=== PATIENT | male | born 1955 | race Caucasian/White ===

== ENCOUNTER 2020-12-09 02:48 | Inpatient (IN) | payer MEDICARE ==
[~2020-12-09] VITALS: Ht 172.7 cm; Wt 90.9 kg
--- NOTE | 2020-12-09 03:04 | NUR ---
PT WAS CHECKING INTO LOBBY FOR LEFT FOOT PAIN. WHILE IN W/C, REPORTS PATIENT STATED HE DOES NOT FEEL WELL AND THEN BECAME UNRESPONSIVE. ER STAFF WAS CALLED TO LOBBY AND FOUND PATIENT WITH CHIN TO CHEST, DIAPHORETIC, AND THREADY PULSE. AIRWAY OPENED AND WHEELED BACK TO ROOM 5. NOW A&OX4. NO SYMPTOMS OTHER THAN LEFT FOOT PAIN STILL
[2020-12-09 03:11] LABS: BASOPHILS # (AUTO) 0.1 X10'3 (0-0.2); BASOPHILS % (AUTO) 0.8 % (0-1); EOSINOPHILS # (AUTO) 0.2 X10'3 (0-0.9); EOSINOPHILS % (AUTO) 1.4 % (0-6); HEMATOCRIT 37.3 % (42.0-52.0); LYMPHOCYTES # (AUTO) 4.1 X10'3 (1.1-4.8); LYMPHOCYTES % (AUTO) 33.6 % (21-51); MEAN CORPUSCULAR HEMOGLOBIN 30.7 PG (27.0-31.0); MEAN CORPUSCULAR HGB CONC 34.8 g/dL (33.0-36.5); MEAN CORPUSCULAR VOLUME 88.3 FL (78-98); MEAN PLATELET VOLUME 8.5 FL (7.4-10.4); MONOCYTES # (AUTO) 0.8 X10'3 (0-0.9); MONOCYTES % (AUTO) 6.2 % (2-12); NEUTROPHILS # (AUTO) 7.1 X10'3 (1.8-7.7); PLATELET COUNT 179 X10'3 (140-440); RED BLOOD COUNT 4.23 X10'6 (4.70-6.10); RED CELL DISTRIBUTION WIDTH 12.8 % (11.5-14.5); WHITE BLOOD COUNT 12.2 X10'3 (4.5-11.0)
[2020-12-09] MEDS ORDERED: ketorolac trometh. 30mg/ml inj. IV ONE (03:15)
[2020-12-09] MEDS ORDERED: normal saline 1000ml 1,000 ML IV ONE (03:15)
[2020-12-09 03:19] LABS: D-DIMER 0.31 MG/L FEU (0-0.50)
[2020-12-09 03:25] LABS: ALANINE AMINOTRANSFERASE 35 U/L (12-78); ALBUMIN 3.6 G/DL (3.4-5.0); ALBUMIN/GLOBULIN RATIO 1.1 (1.1-1.5); ALKALINE PHOSPHATASE 62 IU/L (46-116); ANION GAP 14 (8-16); ASPARTATE AMINO TRANSFERASE 29 U/L (10-37); BILIRUBIN,TOTAL 0.5 MG/DL (0.1-1.0); BLOOD UREA NITROGEN 25 MG/DL (7-18); CALCIUM 8.6 MG/DL (8.5-10.1); CHLORIDE 106 MMOL/L (99-107); CREATININE 1.56 MG/DL (0.60-1.10); GLUCOSE 147 MG/DL (70-104); POTASSIUM 4.1 MMOL/L (3.5-5.1); SODIUM 143 MMOL/L (135-145); TOTAL CARBON DIOXIDE 22.9 MMOL/L (24-32); eGFR 45 ML/MIN
[2020-12-09] MEDS ORDERED: iohexol 350MG/ML 100ml bottle IV ONE (03:30)
[2020-12-09 03:33] LABS: MAGNESIUM 1.9 MG/DL (1.5-2.4)
[2020-12-09] MEDS ORDERED: ROSU10TA28 PO (05:32)
[2020-12-09] MEDS ORDERED: LISI1TAB51 PO (05:32)
[2020-12-09] MEDS ORDERED: SILD25TA PO (05:32)
[2020-12-09] MEDS ORDERED: METO-384 PO (05:32)
[2020-12-09] MEDS ORDERED: acetaminophen 325mg tablet PO PRN (06:15)
[2020-12-09] MEDS ORDERED: potassium Cl 40MEQ/1/2NS 520ml 520 ML IV PRN ×2 (06:15)
[2020-12-09] MEDS ORDERED: ondansetron/PF 4mg/2ml inj IV PRN (06:15)
[2020-12-09] MEDS ORDERED: magnesium 2GM in 50ml NS 50 ML IV PRN (06:15)
[2020-12-09] MEDS ORDERED: potassium Cl 20 mEq SR tablet PO PRN ×2 (06:15)
[2020-12-09] MEDS ORDERED: magnesium 4gm in 100ml NS 100 ML IV PRN (06:15)
[2020-12-09] MEDS ORDERED: magnesium Cl slow-release 64mg tablet PO PRN (06:15)
[2020-12-09] MEDS: normal saline 1000ml 1,000 ML IV SCH ×2 (07:11→18:58)
--- NOTE | 2020-12-09 07:22 | NUR ---
Let pt know that we are just waiting for a bed assignment upstairs for him. Pt and his verbalized understanding. Pt's took the pt's home meds home with her.
--- NOTE | 2020-12-09 07:31 | NUR ---
Paged Dr Kruger regarding pain medication for the patient.
[2020-12-09] MEDS: K and/or MAG REPLACEMENT MC SCH ×2 (08:00→20:00)
[2020-12-09] MEDS ORDERED: HYDROcodone/acetaminophen 5mg/325mg tablet PO PRN (10:10)
--- NOTE | 2020-12-09 10:40 | NUR ---
ASKED PATIENT IF THERE WAS ANYTHING I COULD DO FOR HIM HE AWAITED A BED. HE NEEDED TO USE THE RESTROOM. PATIENT MADE SLOW POSITION CHANGES FROM LYNG FLAT TO SITTIN TO STANDING TO USE THE URINAL. DENIES DIZZYNESS AT THIS TIME
[2020-12-09 11:39] LABS: CHOL/HDL RATIO 3.8 (0.00-4.99); CHOLESTEROL 140 MG/DL (0-200); HDL CHOLESTEROL 37 MG/DL (35-60); LDL CHOLESTEROL 52 MG/DL (50-100); TRIGLYCERIDES 422 MG/DL (20-135)
[2020-12-09 12:25] LABS: HEMOGLOBIN A1C 5.4 % (4.5-6.2)
--- NOTE | 2020-12-09 17:13 | NUR ---
Received report from Aliya in ED - patient rolled up to unit on stretcher. Monitoring
[2020-12-09 17:31] VITALS: BP 184/89
--- NOTE | 2020-12-09 17:41 | NUR ---
PAGER ID: [phone] MESSAGE: Re: Amador Kamara room 309. Pt's BP 184/89. Pt states normally takes BP meds at night. All are scheduled for 4/10 AM. Also, NS @ 100ml/hr - D/C?? Thanks, Nitza [phone]
[2020-12-09 18:00] VITALS: BP 176/77
[2020-12-09] MEDS ORDERED: hydrALAZINE 20mg/ml inj. IV PRN (18:15)
[2020-12-09] MEDS ORDERED: hydrALAZINE 20mg/ml inj. IV ONE (18:15)
--- NOTE | 2020-12-09 18:43 | NUR ---
Problems reprioritized. Patient report given, questions answered & plan of care reviewed with SHAHEED Alejandra.
--- NOTE | 2020-12-09 18:46 | NUR ---
Patient in room MED 309. I have received report from Devon Rdz and had the opportunity to ask questions and assume patient care.
[2020-12-09 20:00] VITALS: BP 166/73
[2020-12-09 20:02] VITALS: BP 184/77
[2020-12-09 20:05] VITALS: BP 187/84
[2020-12-09] MEDS ORDERED: metoprolol succinate 25mg (24-HOUR) SR. Tablet PO SCH (21:00)
[2020-12-09] MEDS ORDERED: atorvastatin 20mg tablet PO SCH (21:00)
[2020-12-09] MEDS ORDERED: lisinopril 20mg tablet PO SCH (21:00)
[2020-12-09] MEDS ORDERED: HYDROchlorothiazide 25mg tablet PO SCH (21:00)
[2020-12-09 22:00] VITALS: BP 131/57
[2020-12-10 02:00] VITALS: BP 154/64
[2020-12-10] MEDS: normal saline 1000ml 1,000 ML IV SCH (04:56)
--- NOTE | 2020-12-10 06:21 | NUR ---
Problems reprioritized. Patient report given, questions answered & plan of care reviewed with Andreas HUMMEL.
[2020-12-10 06:52] VITALS: BP 129/58
[2020-12-10 07:30] LABS: BASOPHILS % (AUTO) 0.7 % (0-1); EOSINOPHILS # (AUTO) 0.1 X10'3 (0-0.9); HEMATOCRIT 33.5 % (42.0-52.0); HEMOGLOBIN 11.6 g/dl (14.0-17.9); LYMPHOCYTES # (AUTO) 1.2 X10'3 (1.1-4.8); LYMPHOCYTES % (AUTO) 25.5 % (21-51); MEAN CORPUSCULAR HEMOGLOBIN 31.1 PG (27.0-31.0); MEAN CORPUSCULAR HGB CONC 34.5 g/dL (33.0-36.5); MEAN CORPUSCULAR VOLUME 90.2 FL (78-98); MEAN PLATELET VOLUME 8.8 FL (7.4-10.4); MONOCYTES # (AUTO) 0.4 X10'3 (0-0.9); MONOCYTES % (AUTO) 8.5 % (2-12); NEUTROPHILS % (AUTO) 63.3 % (42-75); PLATELET COUNT 129 X10'3 (140-440); RED BLOOD COUNT 3.71 X10'6 (4.70-6.10); RED CELL DISTRIBUTION WIDTH 13.2 % (11.5-14.5); WHITE BLOOD COUNT 4.7 X10'3 (4.5-11.0)
[2020-12-10 07:31] VITALS: BP 148/68
[2020-12-10 07:32] VITALS: BP 152/71
[2020-12-10 07:33] VITALS: BP 144/73
[2020-12-10 07:43] LABS: ANION GAP 9 (8-16); BLOOD UREA NITROGEN 17 MG/DL (7-18); BUN/CREATININE RATIO 14.9 (5.4-32.0); CALCIUM 8.3 MG/DL (8.5-10.1); CHLORIDE 110 MMOL/L (99-107); CREATININE 1.14 MG/DL (0.60-1.10); GLUCOSE 104 MG/DL (70-104); MAGNESIUM 1.8 MG/DL (1.5-2.4); POTASSIUM 3.4 MMOL/L (3.5-5.1); SODIUM 145 MMOL/L (135-145); TOTAL CARBON DIOXIDE 26.5 MMOL/L (24-32); eGFR 64 ML/MIN
[2020-12-10] MEDS ORDERED: lisinopril 20mg tablet PO SCH (08:00)
[2020-12-10] MEDS ORDERED: metoprolol succinate 25mg (24-HOUR) SR. Tablet PO SCH (08:00)
[2020-12-10] MEDS ORDERED: HYDROchlorothiazide 25mg tablet PO SCH (08:00)
[2020-12-10] MEDS: K and/or MAG REPLACEMENT MC SCH (08:00)
[2020-12-10 10:38] VITALS: BP 153/62
[2020-12-10] MEDS ORDERED: ASPI-611 PO (11:13)
[2020-12-10] MEDS ORDERED: AMLO5TAB16 PO (11:13)
[2020-12-19] MEDS ORDERED: LEVO50TA8 PO (22:37)
== END 2020-12-10 12:36 | disposition home or self-care (01) | DRG 683 ==
LOC: ER 02:50 → ED HOLD 06:12 → MED 3N 17:16
PROVIDERS: ADMIT Internal Medicine; ATTEND Internal Medicine
PROC: B42G1ZZ Computerized Tomography (CT Scan) of Left Lower Extremity Arteries using Low Osmolar Contrast (ICD-10-PCS; principal; 2020-12-09)
DX: N17.9 Acute kidney failure, unspecified (principal); G45.9 Transient cerebral ischemic attack, unspecified; H81.10 Benign paroxysmal vertigo, unspecified ear; E78.5 Hyperlipidemia, unspecified; Z66 Do not resuscitate; I10 Essential (primary) hypertension; N52.9 Male erectile dysfunction, unspecified; M25.572 Pain in left ankle and joints of left foot
CPT/HCPCS: 36415; 70450; 70544; 70551; 71045; 73610; 73706; 80048; 80053; 80061; 82948; 83036; 83735; 83880; 84443; 84484; 85025; 85379; 93005; 93306; 93308; 93880; 96374; 97116; 97161; 97530; 99285; G0378; J0360; J1885; J7030; Q9967